=== PATIENT | male | born 1990 ===

== ENCOUNTER 2021-05-02 17:45 | Emergency (ER) | payer SELFPAY ==
[~2021-05-02] VITALS: Ht 177.8 cm; Wt 100.2 kg
[2021-05-02 18:15] LABS: BASOPHILS % (AUTO) 1 % (0-1); EOSINOPHILS % (AUTO) 1 % (1-7); LYMPHOCYTES % (AUTO) 26 % (22-44); MEAN CORPUSCULAR HEMOGLOBIN 34.3 pg (27.5-34.5); MEAN CORPUSCULAR HGB CONC 35.4 g/dL (33.2-36.2); MEAN PLATELET VOLUME 8.3 fL (7.4-10.4); MONOCYTES % (AUTO) 5 % (2-9); NEUTROPHILS % (AUTO) 67 % (42-75); PLATELET COUNT 237 x10^3/uL (130-400); RED CELL DISTRIBUTION WIDTH 12.2 % (9.4-14.8)
[2021-05-02 18:22] LABS: ALBUMIN 3.8 g/dL (3.4-5.0); ANION GAP 6 mmol/L (5-15); CALCIUM 8.7 mg/dL (8.5-10.1); CHLORIDE 104 mmol/L (98-107)
[2021-05-02 18:23] LABS: CREATININE 1.25 mg/dL (0.7-1.3)
--- NOTE | 2021-05-02 22:50 | NUR ---
Pt to room from lobby at this time.
[2021-05-02 23:59] VITALS: BP 115/77
== END 2021-05-03 00:01 | disposition home or self-care (01) ==
LOC: ED 18:00
DX: L03.313 Cellulitis of chest wall (principal); N64.4 Mastodynia; F17.210 Nicotine dependence, cigarettes, uncomplicated
CPT/HCPCS: 36415; 80048; 82040; 85025; 99283